=== PATIENT | female | born 1995 | race Caucasian/White ===

== ENCOUNTER 2017-07-19 19:29 | Emergency (ER) | payer OTHER ==
[2017-07-19 19:35] VITALS: BP 119/76; PULSE 94; TEMP 98.6; BMI 32.8
--- NOTE | 2017-07-19 20:19 | PDOC ---
History of Present Illness - General Chief Complaint: Sore Throat Stated Complaint: COUGH/SORE THROAT Time Seen by Provider: 07/19/17 20:18 - History of Present Illness Initial Comments: 07/19/17 22:41 Patient is a 21 year old female with no significant past medical history who presents to the ED with complaints of sore throat. Patient reports the throat pain began 6 days ago. She reports a non productive cough for 6 days as well. She states yesterday she had a coughing fit in which she was unable to stop coughing for 1 minute while at work. Patient reports intermittent bilateral ear pain with no discharge. Pt has a sister at home with simialr symptoms Denies fever, chills. Denies chest pain, SOB. Denies abd pain, nausea, vomiting. Denies any other symptoms. Allergies: NKDA Social history; denies tobacco, illicit drugs. +social etoh Surgical History: denies PMD: Dr. Landeros Past History - Past Medical History Allergies/Adverse Reactions: Allergies Allergy/AdvReac Type Severity Reaction Status Date / Time No Known Allergies Allergy Verified 05/27/16 19:46 Home Medications: Ambulatory Orders Benzonatate [Tessalon Pearls -] 100 mg PO TID PRN #21 capsule 07/19/17 Guaifenesin [Mucinex] 600 mg PO BID PRN #10 tab.er.12h 07/19/17 Other medical history: DENIES - Psycho/Social/Smoking Cessation Hx Anxiety: No Suicidal Ideation: No Smoking Status: No Smoking History: Never smoked Have you smoked in the past 12 months: No Number of Cigarettes Smoked Daily: 0 Hx Alcohol Use: No Drug/Substance Use Hx: No Review of Systems - Review of Systems Comments:: 07/19/17 22:41 GENERAL/CONSTITUTIONAL: No fever or chills. No weakness. HEAD, EYES, EARS, NOSE AND THROAT: +Sore throat. +Ear Pain. No change in vision. No ear discharge. GASTROINTESTINAL: No nausea, vomiting, diarrhea or constipation. GENITOURINARY: No dysuria, frequency, or change in urination. CARDIOVASCULAR: No chest pain or shortness of breath. RESPIRATORY: No cough, wheezing, or hemoptysis. MUSCULOSKELETAL: No joint or muscle swelling or pain. No neck or back pain. SKIN: No rash NEUROLOGIC: No headache, vertigo, loss of consciousness, or change in strength/ sensation. ENDOCRINE: No increased thirst. No abnormal weight change. HEMATOLOGIC/LYMPHATIC: No anemia, easy bleeding, or history of blood clots. ALLERGIC/IMMUNOLOGIC: No hives or skin allergy. *Physical Exam - Vital Signs Last Vital Signs Temp Pulse Resp BP Pulse Ox 98.6 F 94 H 16 119/76 99 07/19/17 19:34 07/19/17 19:34 07/19/17 19:34 07/19/17 19:34 07/19/17 19:34 - Physical Exam Comments: 07/19/17 22:42 GENERAL: Awake, alert, and fully oriented, in no acute distress HEAD: No signs of trauma EYES: PERRLA, EOMI, sclera anicteric, conjunctiva clear ENT: +Mild erythema and cobblestoning in her posterior oropharynx. No exudates and petechiae. Auricles normal inspection with no erythema. +normal light reflex, no bulging TM , hearing grossly normal, nares patent, oropharynx clear without exudates. Moist mucosa NECK: Normal ROM, supple, no lymphadenopathy, JVD, or masses LUNGS: Breath sounds equal, clear to auscultation bilaterally. No wheezes, and no crackles HEART: Regular rate and rhythm, normal S1 and S2, no murmurs, rubs or gallops ABDOMEN: Soft, nontender, normoactive bowel sounds. No guarding, no rebound. No masses EXTREMITIES: Normal range of motion, no edema. No clubbing or cyanosis. No cords , erythema, or tenderness NEUROLOGICAL: Normal speech, cranial nerves intact, negative pronator drift, 5/ 5 strength in all 4 extremities, normal sensation to light touch in all 4 extremities, normal cerebellar exam, normal gait, normal reflexes and tone SKIN: Warm, Dry, normal turgor, no rashes or lesions noted. Medical Decision Making - Medical Decision Making 07/19/17 22:42 21yo healthy female presents to the emergency Department with 6 days of cough, sore throat, and bilateral ear pain. Vitals are unremarkable. Exam with mild oropharyngeal erythema and cobblestoning. Symptoms consistent with a likely viral syndrome. Will provide prescription for anti-tussive medications given persistent cough. -DC with mucincex/marvin tilley *DC/Admit/Observation/Transfer Diagnosis at time of Disposition: Cough, Viral syndrome - Discharge Dispostion Disposition: HOME Condition at time of disposition: Stable - Prescriptions Prescriptions: Guaifenesin [Mucinex] 600 mg PO BID PRN #10 tab.er.12h PRN Reason: Cough Benzonatate [Tessalon Pearls -] 100 mg PO TID PRN #21 capsule PRN Reason: Cough - Referrals Referrals: Maribel Landeros MD [Primary Care Provider] - - Patient Instructions Printed Discharge Instructions: DI for Cough -- Adult Additional Instructions: Follow up with Dr. Loera within 1 week. Please return to the emergency department if you have any new, worsening or concerning symptoms - Post Discharge Activity Work/School Note: Back to Work - Attestations Physician Attestion: 07/19/17 20:34 I, Dr. Alejandra Fuentes MD, attest that this document has been prepared under my direction and personally reviewed by me in its entirety. I further attest, that it accurately reflects all work, treatment, procedures and medical decision -making performed by me.
== END 2017-07-19 20:39 | disposition home or self-care (01) ==
LOC: FER 19:29
DX: B34.9 Viral infection, unspecified (principal); R05 Cough
CPT/HCPCS: 99282-25

== ENCOUNTER 2018-03-25 21:46 | Emergency (ER) | payer OTHER ==
[2018-03-25 21:57] VITALS: BP 115/67; PULSE 71; TEMP 98; BMI 32.5
--- NOTE | 2018-03-25 21:59 | PDOC ---
Rapid Medical Evaluation Chief Complaint: Head/Neck problem Time Seen by Provider: 03/25/18 21:54 Medical Evaluation: Allergies Allergy/AdvReac Type Severity Reaction Status Date / Time No Known Allergies Allergy Verified 05/27/16 19:46 03/25/18 21:56 left side neck pain x 2 weeks now worsening pain to the left arm. pain worse with movement. advil ~ 2 hours ago with no relief in pain. denies fever, chills , rash, cough. PE; patient alert ox3. limited ROM to the left side.+ tender chest A: torticollis P: patient to the ER for further management of care.
--- NOTE | 2018-03-25 22:40 | PDOC ---
History of Present Illness - General Chief Complaint: Head/Neck problem Stated Complaint: LT ARM PAIN Time Seen by Provider: 03/25/18 21:54 - History of Present Illness Initial Comments: 22-year-old healthy female free of any past medical issues presents for evaluation of stiff neck times one week with radiation of symptoms into her thoracic spine and into her bilateral shoulders. Her pain is exacerbated with movement. Relieved with rest. No prior problems like this in the past. 03/25/18 22:39 Past History - Past Medical History Allergies/Adverse Reactions: Allergies Allergy/AdvReac Type Severity Reaction Status Date / Time No Known Allergies Allergy Verified 05/27/16 19:46 Home Medications: Ambulatory Orders NK [No Known Home Medication] 03/25/18 - Suicide/Smoking/Psychosocial Hx Smoking Status: No Smoking History: Never smoked Have you smoked in the past 12 months: No Number of Cigarettes Smoked Daily: 0 Information on smoking cessation initiated: No Hx Alcohol Use: No Drug/Substance Use Hx: No Review of Systems - Review of Systems Comments:: GENERAL/CONSTITUTIONAL: No fever or chills. No weakness. No weight change. HEAD, EYES, EARS, NOSE AND THROAT: No change in vision. No ear pain or discharge. No sore throat. CARDIOVASCULAR: No chest pain or shortness of breath. RESPIRATORY: No cough, wheezing, or hemoptysis. GASTROINTESTINAL: No nausea, vomiting, diarrhea or constipation. No rectal bleeding. GENITOURINARY: No dysuria, frequency, or change in urination. MUSCULOSKELETAL: No joint or muscle swelling or pain. + neck pain no back pain. SKIN AND BREASTS: No rash or easy bruising. NEUROLOGIC: No headache, vertigo, loss of consciousness, or loss of sensation. PSYCHIATRIC: No depression or anxiety. ENDOCRINE: No increased thirst. No abnormal weight change. HEMATOLOGIC/LYMPHATIC: No anemia, easy bleeding, or history of blood clots. ALLERGIC/IMMUNOLOGIC: No hives or skin allergy. No latex allergy. 03/25/18 22:39 *Physical Exam - Vital Signs Last Vital Signs Temp Pulse Resp BP Pulse Ox 98.0 F 71 16 115/67 100 03/25/18 21:55 03/25/18 21:55 03/25/18 21:55 03/25/18 21:55 03/25/18 21:55 - Physical Exam Comments: Cervical spine skin color and temperature are normal. There is decreased painful range of motion. No palpable spasm. Biceps triceps and brachial radialis reflexes are 2+ and symmetric bilaterally. There is 5 out of 5 strength and thumb extension abduction and wrist flexion and extension elbow flexion and extension. 5 out of 5 strength in deltoid. Negative Va sign. Spurling maneuver is negative bilaterally. There are no gross sensory motor deficits. Neurovascularly intact. 03/25/18 22:40
--- NOTE | 2018-03-25 23:10 | PDOC ---
*Physical Exam - Vital Signs Last Vital Signs Temp Pulse Resp BP Pulse Ox 98.0 F 71 16 115/67 100 03/25/18 21:55 03/25/18 21:55 03/25/18 21:55 03/25/18 21:55 03/25/18 21:55 - Physical Exam General Appearance: Yes: Appropriately Dressed HEENT: positive: Other (limited rom to neck left side. + tenderness to palpation) Respiratory/Chest: positive: Chest Tender ED Treatment Course - ADDITIONAL ORDERS Additional order review: Laboratory Results 03/25/18 22:45 Urine HCG, Qual Negative Medical Decision Making - Medical Decision Making Torticollis P: ibuprofen flexeril *DC/Admit/Observation/Transfer Diagnosis at time of Disposition: Torticollis, acute - Discharge Dispostion Disposition: HOME Condition at time of disposition: Stable - Prescriptions Prescriptions: Cyclobenzaprine HCl [Flexeril 10 mg] 10 mg PO TID PRN #12 tablet PRN Reason: Muscle Spasms Ibuprofen 800 mg PO QID PRN #20 tablet PRN Reason: Moderate Pain - Referrals - Patient Instructions Printed Discharge Instructions: DI for Muscle Strain Additional Instructions: apply warm to area, start light stretches. take flexeril three times daily as needed for muscle spasm. do not operate heavy machinery or drive after taking medication take ibuprofen as prescribed. follow up with your doctor. return to the ER if symptoms worse, - Post Discharge Activity Forms/Work/School Notes: Back to Work
== END 2018-03-25 23:12 | disposition home or self-care (01) ==
LOC: JERFT 21:46
DX: M43.6 Torticollis (principal)
CPT/HCPCS: 84703; 99281-25

== ENCOUNTER 2018-05-21 22:23 | Emergency (ER) | payer OTHER ==
[2018-05-21 22:41] VITALS: BP 128/72; PULSE 67; TEMP 99; BMI 33.6
--- NOTE | 2018-05-21 23:43 | PDOC ---
Attending Attestation - Resident Resident Name: Apple Rob - ED Attending Attestation I have performed the following: I have examined & evaluated the patient, The case was reviewed & discussed with the resident, I agree w/resident's findings & plan, Exceptions are as noted - Medical Decision Making 05/22/18 01:12 Pt treated and released. <Henrry Luna - Last Filed: 05/22/18 01:12> - HPI HPI: 05/21/18 23:58 The patient is a 22 year old female, with no significant PMH, who presents to the emergency department with a pain in her left breast for one week. The patient states that earlier today when pressing her left breast she felt a pop which prompted the ED visit tonight. The patient denies any recent trauma to the area. The patient denies any abscesses or nodules on the breast. The patient states she is on her second day of her menstrual period. The patient denies chest pain, shortness of breath, headache and dizziness. Denies fever, chills, nausea, vomit, diarrhea and constipation. Denies dysuria, frequency, urgency and hematuria. Allergies: NKA - Physicial Exam PE: 05/21/18 23:59 GENERAL: Well-appearing, well-nourished. No apparent distress. HEENT: Normocephalic, atraumatic. PERRL, EOM intact. CARDIOVASCULAR: Normal S1, S2. Regular rate and rhythm. CHEST: Both breast no skin changes. No firm tender masses. Normal fibrocystic glands. PULMONARY: Clear to auscultation bilaterally. ABDOMEN: Soft, non-distended, non-tender. EXTREMITIES: Normal ROM in all four extremities. No gross deformities. SKIN: Warm, dry. No rash NEUROLOGICAL: No focal neurological deficits. <Ky Lacy - Last Filed: 05/22/18 01:15> Attestations - Attestations 05/22/18 00:00 Documentation prepared by Ky Lacy, acting as medical receptionist for Henrry Luna DO. <Ky Lacy - Last Filed: 05/22/18 01:15>
[2018-05-22 00:38] LABS: URINE APPEARANCE CLEAR; URINE BILIRUBIN NEGATIVE (<2.0 mg/dL); URINE COLOR STRAW; URINE GLUCOSE (UA) NEGATIVE (NEGATIVE); URINE KETONE NEGATIVE (NEGATIVE); URINE LEUK ESTERASE NEGATIVE (NEGATIVE); URINE NITRITE NEGATIVE (NEGATIVE); URINE PROTEIN NEGATIVE (NEGATIVE); URINE UROBILINOGEN NEGATIVE mg/dL (0.2-1.0)
[2018-05-22 00:44] LABS: HCG,QUALITATIVE URINE NEGATIVE
--- NOTE | 2018-05-22 01:18 | PDOC ---
History of Present Illness - General Chief Complaint: Pain Stated Complaint: PAIN Time Seen by Provider: 05/21/18 22:58 History Source: Patient - History of Present Illness Initial Comments: 05/22/18 01:13 Patient is a previously healthy 22 year old female Past History - Past Medical History Allergies/Adverse Reactions: Allergies Allergy/AdvReac Type Severity Reaction Status Date / Time No Known Allergies Allergy Verified 05/21/18 22:41 Home Medications: Ambulatory Orders Cyclobenzaprine HCl [Flexeril 10 mg] 10 mg PO TID PRN #12 tablet 03/25/18 Ibuprofen 800 mg PO QID PRN #20 tablet 03/25/18 COPD: No - Reproductive History Is Patient Now?: No - Suicide/Smoking/Psychosocial Hx Smoking Status: No Smoking History: Never smoked Have you smoked in the past 12 months: No Number of Cigarettes Smoked Daily: 0 Information on smoking cessation initiated: No Hx Alcohol Use: No Drug/Substance Use Hx: No Substance Use Type: None *Physical Exam - Vital Signs Last Vital Signs Temp Pulse Resp BP Pulse Ox 99.0 F 67 17 128/72 100 05/21/18 22:39 05/21/18 22:39 05/21/18 22:39 05/21/18 22:39 05/21/18 22:39 ED Treatment Course - ADDITIONAL ORDERS Additional order review: Laboratory Results 05/21/18 00:15 Urine Color Straw Urine Appearance Clear Urine pH 7.0 Ur Specific [place] 1.012 Urine Protein Negative Urine Glucose (UA) Negative Urine Ketones Negative Urine Blood 3+ H Urine Nitrite Negative Urine Bilirubin Negative Urine Urobilinogen Negative Ur Leukocyte Esterase Negative Urine HCG, Qual Negative *DC/Admit/Observation/Transfer Diagnosis at time of Disposition: Breast pain in female - Discharge Dispostion Disposition: HOME Condition at time of disposition: Stable - Referrals - Patient Instructions Printed Discharge Instructions: How to Perform a Breast Self-examination, DI for Breast Pain (Mastalgia) Additional Instructions: You were seen here today because you were having pain in your L breast. We did not notice any bumps or redness/swelling which would be concerning for infection. The most likely cause of your breast pain is your glands reacting to your hormones released during the menstrual cycle. You can take over the counter pain medications such as Tylenol or ibuprofen. Follow the instructions on the bottles. Please come back to the ED if: the pain worsens, you start to notice changes in your skin overlying the breast (bumps, redness, swelling), if you feel any lumps inside the breast, if you develop fever or any new concerning symptom. Please follow up with your PCP or [facility]. Thank you. - Post Discharge Activity
[2018-05-22 02:42] LABS: EPI CELLS RARE /HPF (FEW); URINE BACTERIA RARE /hpf (NONE SEEN)
== END 2018-05-22 01:24 | disposition home or self-care (01) ==
LOC: JER 22:23
DX: N64.4 Mastodynia (principal)
CPT/HCPCS: 81003; 81015; 84703; 99281-25

== ENCOUNTER 2022-08-11 21:47 | Emergency (ER) | payer OTHER ==
[2022-08-11 21:54] VITALS: BP 121/77; RESP 18; TEMP 98.2; BMI 31.8
[2022-08-11 22:33] VITALS: PULSE 84
== END 2022-08-11 23:23 | disposition home or self-care (01) ==
LOC: JER 21:47
DX: R06.02 Shortness of breath (principal)
CPT/HCPCS: 99283-25

== ENCOUNTER 2022-08-18 19:52 | Emergency (ER) | payer OTHER ==
[2022-08-18 20:03] VITALS: BP 126/82; PULSE 84; RESP 18; TEMP 98.7; BMI 32.8
[2022-08-18] MEDS ORDERED: ACETAMINOPHEN 500 MG TABLET (FP) PO ONE (21:21)
[2022-08-18] MEDS ORDERED: ACETAMINOPHEN 325 MG TABLET (FP) ONE (21:34)
[2022-08-18 21:55] LABS: PH,URINE 6.5 (5.0-8.0); URINE APPEARANCE CLEAR; URINE BILIRUBIN NEGATIVE (NEGATIVE); URINE COLOR YELLOW; URINE GLUCOSE (UA) NEGATIVE (NEGATIVE); URINE KETONE NEGATIVE (NEGATIVE); URINE LEUK ESTERASE NEGATIVE (NEGATIVE); URINE NITRITE NEGATIVE (NEGATIVE); URINE PROTEIN NEGATIVE (NEGATIVE); URINE UROBILINOGEN 0.2 mg/dL (0.2-1.0)
[2022-08-18 21:58] LABS: HCG,QUALITATIVE URINE Negative
== END 2022-08-18 23:34 | disposition home or self-care (01) ==
LOC: JER 19:52
DX: R10.32 Left lower quadrant pain (principal)
CPT/HCPCS: 76830-TC; 81003; 84703; 87086; 99284-25

== ENCOUNTER 2023-10-18 17:28 | Emergency (ER) | payer OTHER ==
[2023-10-18 17:42] VITALS: BP 121/82; RESP 75; TEMP 98.2; BMI 30.1
[2023-10-18] MEDS ORDERED: KETOROLAC TROMETHAMINE 30 MG/1 ML VIAL IM ONE (18:37)
[2023-10-18] MEDS ORDERED: KETOROLAC TROMETHAMINE 30 MG/1 ML VIAL ONE (18:42)
[2023-10-18] MEDS ORDERED: LIDOCAINE 4% PATCH TP ONE (18:46)
== END 2023-10-18 19:59 | disposition home or self-care (01) ==
LOC: JERFT 17:28 → JER 17:28 → JERFT 19:59
PROC: 3E0233Z Introduction of Anti-inflammatory into Muscle, Percutaneous Approach (ICD-10-PCS; principal; 2023-10-18)
DX: M79.10 Myalgia, unspecified site (principal); R51.9 Headache, unspecified; R05.9 Cough, unspecified; J02.9 Acute pharyngitis, unspecified; R53.83 Other fatigue; B34.9 Viral infection, unspecified; Z20.822 Contact with and (suspected) exposure to COVID-19
CPT/HCPCS: 0241U-QW; 87651; 96372; 99284-25

== ENCOUNTER 2024-01-15 15:18 | Emergency (ER) | payer OTHER ==
[2024-01-15 15:26] VITALS: BP 101/68; PULSE 94; RESP 19; TEMP 98.8; BMI 30.1
== END 2024-01-15 17:16 | disposition home or self-care (01) ==
LOC: JERFT 15:18
DX: L81.9 Disorder of pigmentation, unspecified (principal); F41.9 Anxiety disorder, unspecified; R07.89 Other chest pain; R06.02 Shortness of breath; R20.2 Paresthesia of skin; J34.89 Other specified disorders of nose and nasal sinuses
CPT/HCPCS: 93005; 93010; 99283-25

== ENCOUNTER 2024-06-28 03:53 | Emergency (ER) | payer OTHER ==
[2024-06-28 03:59] VITALS: BP 113/70; PULSE 87; RESP 18; TEMP 98.8; BMI 30.1
[2024-06-28] MEDS ORDERED: FAMOTIDINE 20 MG/50 ML IVPB 20 MG/50 ML MG IVPB ONE (04:50)
[2024-06-28] MEDS ORDERED: ONDANSETRON 4 MG/2 ML VIAL ONE (04:50)
[2024-06-28] MEDS: ONDANSETRON 4 MG/2 ML VIAL IVPUSH ONE (05:07)
[2024-06-28] MEDS: FAMOTIDINE 20 MG/50 ML IVPB 20 MG/50 ML MG IVPB ONE (05:07)
[2024-06-28] MEDS: SODIUM CHLORIDE 1,000 ML IV STA (05:07)
[2024-06-28 06:04] LABS: PH,URINE >= 9.0 (5.0-8.0); URINE APPEARANCE CLEAR; URINE BILIRUBIN NEGATIVE (NEGATIVE); URINE COLOR YELLOW; URINE GLUCOSE (UA) NEGATIVE (NEGATIVE); URINE KETONE 1+ (NEGATIVE); URINE LEUK ESTERASE NEGATIVE (NEGATIVE); URINE NITRITE NEGATIVE (NEGATIVE); URINE PROTEIN TRACE (NEGATIVE)
[2024-06-28 06:18] LABS: BASO % 0.2 % (0-2.0); EOS % 0.2 % (0-4.5); HEMATOCRIT 37.4 % (32.4-45.2); HEMOGLOBIN 12.5 GM/dL (10.7-15.3); LYMPH % 3.6 % (8-40); MCHC 33.5 g/dl (32.0-36.0); MEAN CELL VOLUME 89.8 fl (80-96); MONO % 3.6 % (3.8-10.2); NEUT % 92.4 % (42.8-82.8); PLATELET COUNT 292 10^3/uL (134-434); POTASSIUM 3.8 mmol/L (3.5-5.1); RBC 4.17 M/mm3 (3.60-5.2); RDW 12.9 % (11.6-15.6); WHITE BLOOD COUNT 9.1 K/mm3 (4.0-10.0)
[2024-06-28 06:22] LABS: CALCIUM 8.5 mg/dL (8.5-10.1)
[2024-06-28 06:23] LABS: ALBUMIN 3.7 g/dl (3.4-5.0); BLOOD UREA NITROGEN 14.5 mg/dL (7-18)
[2024-06-28 06:26] LABS: CREATININE 0.8 mg/dL (0.55-1.3)
[2024-06-28 06:27] LABS: BILIRUBIN,TOTAL 0.6 mg/dL (0.2-1)
[2024-06-28 06:28] LABS: TOT PROT 7.4 g/dl (6.4-8.2)
[2024-06-28] MEDS ORDERED: METOCLOPRAMIDE HCL INJECTION 10 MG/2 ML VIAL ONE (06:34)
[2024-06-28] MEDS: METOCLOPRAMIDE HCL INJECTION 10 MG/2 ML VIAL IVPUSH ONE (06:54)
[2024-06-28 08:59] LABS: ANISOCYTOSIS 0; MACROCYTOSIS 0
== END 2024-06-28 07:12 | disposition home or self-care (01) ==
LOC: JER 03:53
PROC: 3E033GC Introduction of Other Therapeutic Substance into Peripheral Vein, Percutaneous Approach (ICD-10-PCS; principal; 2024-06-28)
PROC: 3E033GC Introduction of Other Therapeutic Substance into Peripheral Vein, Percutaneous Approach (ICD-10-PCS; 2024-06-28)
PROC: 3E033GC Introduction of Other Therapeutic Substance into Peripheral Vein, Percutaneous Approach (ICD-10-PCS; 2024-06-28)
DX: R11.2 Nausea with vomiting, unspecified (principal); R19.7 Diarrhea, unspecified; R10.9 Unspecified abdominal pain; Z20.822 Contact with and (suspected) exposure to COVID-19
CPT/HCPCS: 0241U-QW; 36415; 80053; 81003; 84703; 85025; 87086; 99284-25